=== PATIENT | female | born 1940 | race Caucasian/White ===

== ENCOUNTER → 2018-09-21 | Day surgery (SDC) | payer MEDICARE ==
[~2018-09-21] MED LIST: Lactated Ringers 1,000 ML IV SCH; Propofol 200 MG/20 ML SDV IV ONE
[2018-09-21 09:13] VITALS: BP 111/60; PULSE 59
--- NOTE | 2018-09-21 10:16 | OR ---
DATE OF OPERATION: 09/21/2018 PREOPERATIVE DIAGNOSIS: HISTORY OF POLYPS. POSTOPERATIVE DIAGNOSIS: HISTORY OF POLYPS. SURGEON: Ray Mirza MD PROCEDURE: FULL-LENGTH COLONOSCOPY WITH SNARE POLYPECTOMY X1. ANESTHESIA: MAC via GLUELINE WORKER. COMPLICATIONS: None. SPECIMEN: Tubular adenoma, splenic flexure. FINDINGS: 1. Full-length colonoscopy. 2. Plricsau-[id number] garcia diverticulosis. 3. Tubular adenoma, slightly larger than 0.5 cm, splenic flexure. RECOMMENDATIONS: Followup colonoscopy in 5 years. INDICATIONS: The patient has a prior history of polyp removal. She is in for a routine followup scope. DESCRIPTION OF PROCEDURE: The patient was prepped and draped, placed in the left lateral decubitus position. A lubricated Olympus colonoscope was inserted and easily advanced to the cecum. Direct visualization of the ileocecal valve and appendiceal orifice was accomplished. The bowel prep was adequate. She did have a lot of liquid stool in the left colon, but most of this was suctionable. Upon withdrawal, the cecum, ascending and transverse colon were benign other than the fact that the patient does have garcia diverticular disease, most severe in the sigmoid, but moderate throughout most of the colon. Just past the splenic flexure and the descending colon side, the patient had a stalk tubular adenoma just maybe over 0.5 cm in size, easily removed with a snare and suctioned into polyp trap #1 without complication. The rest of the descending and sigmoid colon showed no further polyps, mass, ulceration, or bleeding sites. No vascular abnormalities or signs of colitis. Severe diverticular disease is seen in the sigmoid. Rectal vault was benign. Retroflexion of the scope showed no perianal lesions. Air was suctioned, scope removed without complication. BARBER/JOHANNA /[id number]
== END ==
LOC: CC.SDS 07:05
PROVIDERS: ATTEND Family Medicine
DX: Z12.11 Encounter for screening for malignant neoplasm of colon (principal); D12.3 Benign neoplasm of transverse colon; K57.30 Diverticulosis of large intestine without perforation or abscess without bleeding; I10 Essential (primary) hypertension; E11.9 Type 2 diabetes mellitus without complications; F32.9 Major depressive disorder, single episode, unspecified; M17.10 Unilateral primary osteoarthritis, unspecified knee; M10.9 Gout, unspecified; Z88.8 Allergy status to other drugs, medicaments and biological substances; Z91.048 Other nonmedicinal substance allergy status; Z86.010 Personal history of colon polyps; Z85.038 Personal history of other malignant neoplasm of large intestine; Z79.82 Long term (current) use of aspirin; Z79.899 Other long term (current) drug therapy
CPT/HCPCS: 45385; J2704; J7120; 00811; 88305

== ENCOUNTER 2019-02-15 17:38 | Observation (INO) | payer MEDICARE ==
[2019-02-15] MEDS ORDERED: Acetaminophen 500 MG Tab PO ONE (18:11)
--- NOTE | 2019-02-15 18:43 | EDM.PDOC ---
ED HPI GENERAL MEDICAL PROBLEM - General Chief Complaint: Abdominal Pain Stated Complaint: abdominal pain, shaking, cold, N/V Time Seen by Provider: 02/15/19 18:05 Source of Information: Reports: Patient History Limitations: Reports: No Limitations - History of Present Illness INITIAL COMMENTS - FREE TEXT/NARRATIVE: This patient is a 78 year old female that reports that about 3pm today she generally was not feeling well. She reports having abdominal pain and and having the chills. She reports that for the past 2 weeks she has also had runny nose, congestion, drainage, and productive cough, She reports her drainage and cough are getting better. She reports though today that her abdominal pain to the RLQ. Onset: Today Onset Date: 02/15/19 Onset Time: 15:00 Location: Reports: Abdomen Quality: Reports: Ache Severity: Moderate Improves with: Reports: None Worsens with: Reports: None Associated Symptoms: Reports: Cough, cough w sputum, Fever/Chills, Headaches, Malaise, Nausea/Vomiting. Denies: Confusion, Chest Pain, Diaphoresis, Shortness of Breath, Syncope, Weakness Lower Abdominal Pain Score (Numeric/FACES): 8 - Related Data Allergies Allergy/AdvReac Type Severity Reaction Status Date / Time benazepril HCl Allergy Redness Verified 02/15/19 17:47 [From Lotensin] hydroxyamphetamine Allergy Cannot Verified 02/15/19 17:47 [From Paremyd] Remember tropicamide [From Paremyd] Allergy Cannot Verified 02/15/19 17:47 Remember dilating eye drops Allergy Redness Uncoded 02/15/19 17:47 tape Allergy Rash Uncoded 02/15/19 17:47 Home Meds: Home Meds Ascorbic Acid [Vitamin C] 500 mg PO DAILY 06/17/13 [History] Aspirin [Adult Low Dose Aspirin EC] 81 mg PO DAILY 06/17/13 [History] Atenolol/Chlorthalidone [Atenolol-Chlorthal 50-25 Tb] 0.5 tab PO DAILY 06/17/13 [History] Cholecalciferol (Vitamin D3) [Vitamin D3] 1,000 units PO DAILY 06/17/13 [History ] Cyanocobalamin (Vitamin B12) [Vitamin B12] 250 mcg PO DAILY 06/17/13 [History] Multivitamin [Daily Multiple Vitamin] 1 tab PO DAILY 06/17/13 [History] Biotin 10 mg PO DAILY 09/20/18 [History] Calcium Carbonate [Calcium] 600 mg PO DAILY 09/20/18 [History] Glucosamine [Glucosamine Sulfate] 500 mg PO BID 09/20/18 [History] allopurinoL [Zyloprim] 300 mg PO DAILY 09/20/18 [History] lisinopriL [Lisinopril] 2.5 mg PO DAILY 09/20/18 [History] Past Medical History HEENT History: Reports: Cataract Genitourinary History: Reports: Renal Calculus 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 Dermatologic History: Reports: Melanoma, Other (See Below) Other Dermatologic History: mole removal - Past Surgical History HEENT Surgical History: Reports: Cataract Surgery Female Surgical History: Reports: Other (See Below) Other Female Surgeries/Procedures: R) kidney removed Oncologic Surgical History: Reports: Other (See Below) Other Oncologic Surgeries/Procedures: "radical surgery" per pt states. Dermatological Surgical History: Reports: Skin Biopsy, Other (See Below) Social & Family History - Family History Family Medical History: Noncontributory - Tobacco Use Smoking Status *Q: Never Smoker Second Hand Smoke Exposure: No - Caffeine Use Caffeine Use: Reports: None - Recreational Drug Use Recreational Drug Use: No ED ROS GENERAL - Review of Systems Review Of Systems: See Below Constitutional: Reports: Fever, Chills, Malaise, Fatigue HEENT: Reports: Rhinitis, Sinus Problem Respiratory: Reports: Cough, Sputum. Denies: Shortness of Breath, Wheezing, Pleuritic Chest Pain Cardiovascular: Reports: No Symptoms Endocrine: Reports: No Symptoms GI/Abdominal: Reports: Abdominal Pain, Nausea. Denies: Diarrhea, Vomiting : Reports: No Symptoms Musculoskeletal: Reports: No Symptoms Skin: Reports: No Symptoms Neurological: Reports: No Symptoms Psychiatric: Reports: No Symptoms Hematologic/Lymphatic: Reports: No Symptoms Immunologic: Reports: No Symptoms ED EXAM, GI/ABD - Physical Exam Exam: See Below Exam Limited By: No Limitations General Appearance: Alert, WD/WN, No Apparent Distress, Anxious, Obese Eyes: Bilateral: Normal Appearance Ears: Normal External Exam, Normal Canal, Hearing Grossly Normal, Normal TMs Nose: Normal Inspection, Normal Mucosa, No Blood Throat/Mouth: Normal Inspection, Normal Lips, Normal Teeth, Normal Gums, Normal Oropharynx, Normal Voice, No Airway Compromise Head: Atraumatic, Normocephalic Neck: Normal Inspection, Supple, Non-Tender, Full Range of Motion Respiratory/Chest: No Respiratory Distress, Lungs Clear, Normal Breath Sounds, No Accessory Muscle Use Cardiovascular: Normal Peripheral Pulses, Regular Rate, Rhythm, No Edema, No Gallop, No JVD, No Murmur, No Rub GI/Abdominal Exam: Normal Bowel Sounds, Soft, Tender (RLQ), Other (obese). No: Guarding (Female) Exam: Deferred Rectal (Female) Exam: Deferred Back Exam: Normal Inspection, Full Range of Motion, CVA Tenderness (L), CVA Tenderness (R) Extremities: Normal Inspection, Normal Range of Motion, Non-Tender, No Pedal Edema, Normal Capillary Refill Neurological: Alert, Oriented, Normal Cognition, No Motor/Sensory Deficits Psychiatric: Anxious Skin Exam: Warm, Dry, Intact, Normal Color, No Rash Lymphatic: No Adenopathy Course - Vital Signs Last Recorded V/S: Last Vital Signs Temp 98.9 F 02/15/19 18:49 Pulse 90 02/15/19 17:39 Resp 20 02/15/19 17:39 BP 147/84 H 02/15/19 17:39 Pulse Ox 98 02/15/19 17:39 - Orders/Labs/Meds Orders: Active Orders 24 hr Category Date Time Status Abdomen Pelvis w Cont [CT] Stat Exams 02/15/19 19:11 Taken Chest 1V Frontal [CR] Stat Exams 02/15/19 18:18 Taken CULTURE BLOOD [BC] Stat Lab 02/15/19 18:35 Received CULTURE BLOOD [BC] Stat Lab 02/15/19 18:45 Received Blood Culture x2 Reflex Set [OM.PC] Stat Oth 02/15/19 18:17 Ordered Labs: Laboratory Tests 02/15/19 02/15/19 02/15/19 Range/Units 18:35 18:35 18:35 WBC 9.0 (5.0-10.0) 10^3/uL RBC 3.74 L (4.00-5.50) 10^6/uL Hgb 12.0 (12.0-16.0) g/dL Hct 35.0 L (37.0-47.0) % MCV 93.6 (82.0-94.0) fL MCH 32.1 H (27.0-32.0) pg MCHC 34.3 (33.0-38.0) g/dL RDW Coeff of Davy 15.1 H (11.0-15.0) % Plt Count 99 L (150-400) 10^3/uL Neut % (Auto) 86.1 H (35-85) % Lymph % (Auto) 5.5 L (10-55) % [place] % (Auto) 8.2 (0-16) % Eos % (Auto) 0.2 (0-5) % Baso % (Auto) 0 (0-3) % Neut # (Auto) 7.73 H (1.80-7.00) 10^3/uL Lymph # (Auto) 0.49 L (1.00-4.80) 10^3/uL [place] # (Auto) 0.74 (0.00-0.80) 10^3/uL Eos # (Auto) 0.02 (0.00-0.45) 10^3/uL Baso # (Auto) 0.00 10^3/uL Sodium 139 (136-145) mEq/L Potassium 3.8 (3.5-5.0) mEq/L Chloride 102 (98-106) mEq/L Carbon Dioxide 28 (21-32) mmol/L BUN 16 (7-18) mg/dL Creatinine 1.0 (0.6-1.0) mg/dL Est Cr Clr Drug Dosing 38.97 mL/min Estimated GFR (MDRD) 54 L (>=60) mL/min Glucose 219 H D (75-99) mg/dL Lactic Acid 1.5 (0.4-2.0) mmol/L Calcium 9.3 (8.4-10.1) mg/dL Total Bilirubin 1.3 H (0.0-1.0) mg/dL AST 41 H (15-37) U/L ALT 18 (12-78) U/L Alkaline Phosphatase 151 H (46-116) U/L C-Reactive Protein 1.6 H (0.2-0.8) mg/dL Total Protein 7.6 (6.4-8.2) g/dL Albumin 2.7 L (3.4-5.0) g/dL Amylase 43 (25-115) U/L Lipase 143 (73-393) U/L Urine Color (YELLOW) Urine Appearance (CLEAR) Urine pH (4.5-8.0) Ur Specific [place] (1.003-1.020) Urine Protein (NEGATIVE) mg/dL Urine Glucose (UA) (NEGATIVE) mg/dL Urine Ketones (NEGATIVE) mg/dL Urine Occult Blood (NEGATIVE) Urine Nitrite (NEGATIVE) Urine Bilirubin (NEGATIVE) Urine Urobilinogen (0.2-1.0) EU/dL Ur Leukocyte Esterase (NEGATIVE) Urine RBC (0-5) /HPF Urine WBC (0-5) /HPF Ur Squamous Epith Cells (NOT SEEN) /HPF Urine Bacteria (NOT SEEN) /HPF Hyaline Casts (NOT SEEN) /LPF Urine Mucus (NOT SEEN) /HPF 02/15/19 Range/Units 18:36 WBC (5.0-10.0) 10^3/uL RBC (4.00-5.50) 10^6/uL Hgb (12.0-16.0) g/dL Hct (37.0-47.0) % MCV (82.0-94.0) fL MCH (27.0-32.0) pg MCHC (33.0-38.0) g/dL RDW Coeff of Davy (11.0-15.0) % Plt Count (150-400) 10^3/uL Neut % (Auto) (35-85) % Lymph % (Auto) (10-55) % [place] % (Auto) (0-16) % Eos % (Auto) (0-5) % Baso % (Auto) (0-3) % Neut # (Auto) (1.80-7.00) 10^3/uL Lymph # (Auto) (1.00-4.80) 10^3/uL [place] # (Auto) (0.00-0.80) 10^3/uL Eos # (Auto) (0.00-0.45) 10^3/uL Baso # (Auto) 10^3/uL Sodium (136-145) mEq/L Potassium (3.5-5.0) mEq/L Chloride (98-106) mEq/L Carbon Dioxide (21-32) mmol/L BUN (7-18) mg/dL Creatinine (0.6-1.0) mg/dL Est Cr Clr Drug Dosing mL/min Estimated GFR (MDRD) (>=60) mL/min Glucose (75-99) mg/dL Lactic Acid (0.4-2.0) mmol/L Calcium (8.4-10.1) mg/dL Total Bilirubin (0.0-1.0) mg/dL AST (15-37) U/L ALT (12-78) U/L Alkaline Phosphatase (46-116) U/L C-Reactive Protein (0.2-0.8) mg/dL Total Protein (6.4-8.2) g/dL Albumin (3.4-5.0) g/dL Amylase (25-115) U/L Lipase (73-393) U/L Urine Color Yellow (YELLOW) Urine Appearance Slightly cloudy (CLEAR) Urine pH 7.0 (4.5-8.0) Ur Specific [place] 1.020 (1.003-1.020) Urine Protein Negative (NEGATIVE) mg/dL Urine Glucose (UA) Negative (NEGATIVE) mg/dL Urine Ketones Negative (NEGATIVE) mg/dL Urine Occult Blood Trace-lysed H (NEGATIVE) Urine Nitrite Negative (NEGATIVE) Urine Bilirubin Negative (NEGATIVE) Urine Urobilinogen 1.0 (0.2-1.0) EU/dL Ur Leukocyte Esterase Negative (NEGATIVE) Urine RBC 0-5 (0-5) /HPF Urine WBC 0-5 (0-5) /HPF Ur Squamous Epith Cells Many H (NOT SEEN) /HPF Urine Bacteria Not seen (NOT SEEN) /HPF Hyaline Casts Few H (NOT SEEN) /LPF Urine Mucus Not seen (NOT SEEN) /HPF Meds: Medications Discontinued Medications Generic Name Dose Route Start Last Admin Trade Name Freq PRN Reason Stop Dose Admin Acetaminophen 1,000 mg 02/15/19 18:11 02/15/19 18:19 Tylenol Extra Strength PO 02/15/19 18:12 1,000 mg ONETIME ONE Administration Sodium Chloride 1,000 mls @ 1,000 mls/hr 02/15/19 20:30 02/15/19 20:37 Normal Saline IV 02/15/19 21:29 1,000 mls/hr .BOLUS ONE Administration Iopamidol 200 ml 02/15/19 19:17 02/15/19 19:42 Isovue-370 (76%) IV 02/15/19 19:18 160 ml ONETIME ONE Administration - Radiology Interpretation Free Text/Narrative:: CXR: No acute process CT abd pelvis with contrast: Discussed with radiologist and compared previous. No changes. Moderate ascites unchanged, diverticula without diverticulitis, liver cirrhosis, aortic dilation stable since last exam. Normal appendix. normal gallbladder and pancreas. CT Results Date: 02/15/19 CT Results Time: 08:35 - Re-Assessments/Exams Free Text/Narrative Re-Assessment/Exam: 02/15/19 20:58 Discussed with patient being discharged home. Patient feels more comfortable staying over night in hospital. I will admit patient for abd pain, fever. Discussed patient case with Julia, recommend dx viral gastroenteritis and discharge. 02/15/19 21:00 Patient refuses any other medication other than the fluids and tylenol. Departure - Departure Time of Disposition: 21:00 Disposition: Refer to Observation Condition: Fair Clinical Impression: Gastroenteritis Abdominal pain Qualifiers: Abdominal location: right lower quadrant Qualified Code(s): R10.31 - Right lower quadrant pain Fever Qualifiers: Fever type: unspecified Qualified Code(s): R50.9 - Fever, unspecified Ascites Qualifiers: Ascites type: other type Qualified Code(s): R18.8 - Other ascites - Discharge Information *PRESCRIPTION DRUG MONITORING PROGRAM REVIEWED*: Not Applicable *COPY OF PRESCRIPTION DRUG MONITORING REPORT IN PATIENT JAROD: Not Applicable Sepsis Event Note - Evaluation Sepsis Screening Result: No Definite Risk - Focused Exam Vital Signs: Vital Signs Temp Temp Pulse Resp BP Pulse Ox 02/15/19 18:49 98.9 F 02/15/19 18:19 100.9 F H 02/15/19 17:39 100.9 F H 90 20 147/84 H 98 Date Exam was Performed: 02/15/19 Time Exam was Performed: 21:49 - My Orders Last 24 Hours: My Active Orders 02/15/19 18:17 Blood Culture x2 Reflex Set [OM.PC] Stat 02/15/19 18:18 Chest 1V Frontal [CR] Stat 02/15/19 18:35 CULTURE BLOOD [BC] Stat 02/15/19 18:45 CULTURE BLOOD [BC] Stat 02/15/19 19:11 Abdomen Pelvis w Cont [CT] Stat - Assessment/Plan Last 24 Hours: My Active Orders 02/15/19 18:17 Blood Culture x2 Reflex Set [OM.PC] Stat 02/15/19 18:18 Chest 1V Frontal [CR] Stat 02/15/19 18:35 CULTURE BLOOD [BC] Stat 02/15/19 18:45 CULTURE BLOOD [BC] Stat 02/15/19 19:11 Abdomen Pelvis w Cont [CT] Stat Plan: PLEASE SEE RN NOTE FOR PFSH. PLEASE USE ER H&P ADMIT H&P.
[2019-02-15] MEDS ORDERED: Iopamidol 755 Mg/ML 200 ML Bottle IV ONE (19:17)
[2019-02-15] MEDS ORDERED: Sodium Chloride 0.9% 1,000 ML IV ONE (20:30)
[2019-02-15] MEDS ORDERED: Enoxaparin 40 MG/0.4 ML Syringe SUBCUT SCH ×2 (22:00)
[2019-02-15] MEDS ORDERED: Ondansetron 4 MG/2 ML SDV IV PRN (22:09)
[2019-02-15] MEDS ORDERED: Ibuprofen 200 MG Tab PO PRN (22:09)
[2019-02-16 07:50] VITALS: PULSE 62
[2019-02-16] MEDS ORDERED: ATENOLOL PO SCH (08:00)
[2019-02-16] MEDS ORDERED: CHLORTHALIDONE PO SCH (08:00)
[2019-02-16] MEDS ORDERED: Non-Formulary Medication 1 Each (Biotin [Biotin] 10 MG) PO SCH (08:00)
[2019-02-16] MEDS ORDERED: Non-Formulary Medication 1 Each (Ascorbic Acid [Vitamin C] 500 MG) PO SCH (08:00)
[2019-02-16] MEDS ORDERED: Non-Formulary Medication 1 Each (Allopurinol [Zyloprim] 300 MG) PO SCH (08:00)
[2019-02-16] MEDS ORDERED: [UNRECOGNIZED DRUG - OTHER] PO SCH (08:00)
[2019-02-16] MEDS ORDERED: Non-Formulary Medication 1 Each (Glucosamine [Glucosamine Sulfate] 500 MG) PO SCH (08:00)
[2019-02-16] MEDS ORDERED: MULTIVITAMIN PO SCH (08:00)
[2019-02-16] MEDS ORDERED: CYANOCOBALAMIN 250 MCG PO SCH (08:00)
[2019-02-16] MEDS ORDERED: Non-Formulary Medication 1 Each (Calcium Carbonate 600 MG) PO SCH (08:00)
[2019-02-16] MEDS ORDERED: Non-Formulary Medication 1 Each (Cholecalciferol (Vitamin D3) [Vitamin D3] 1,000 UNITS) PO SCH (08:00)
[2019-02-16] MEDS ORDERED: Non-Formulary Medication 1 Each (Lisinopril [Lisinopril] 2.5 MG) PO SCH (08:00)
[2019-02-16 13:06] VITALS: BP 109/49
--- NOTE | 2019-02-16 14:55 | PCM.DCSUM1 ---
Discharge Summary - Hospital Course HPI Initial Comments: This patient was admitted for abdominal pain yesterday. Patient reports today her abdominal pain is much better. She reports she is ready to go home. I spoke to daughter on the phone with the permission of the patient. Daughter is oldest daughter and a nurse. We discussed all lab results and ct results and patient need to see her PCP and liver specialist. I will discharge the patient home. - Discharge Data Discharge Date: 02/16/19 Discharge Disposition: Home, Self-Care 01 Condition: Stable - Referral to Home Health Primary Care Physician: Zulema Garcia PA-C - Patient Instructions Diet: Usual Diet as Tolerated Activity: As Tolerated, Rest and Relax Today Driving: May Drive Today Showering/Bathing: May Shower Notify Provider of: Fever, Increased Pain, Swelling and Redness, Nausea and/or Vomiting Other/Special Instructions: Followup with your primcary care provider this week. Followup with a liver specialist, your primary care provider to arrange. Return for increase in pain, fever, vomiting, swelling abdomen, shortness of breath, or any other concerns. Discuss your ct results with your primary care provider: Possible US or MRI further testing. - Discharge Plan *PRESCRIPTION DRUG MONITORING PROGRAM REVIEWED*: Not Applicable *COPY OF PRESCRIPTION DRUG MONITORING REPORT IN PATIENT JAROD: Not Applicable Home Medications: Home Meds Ascorbic Acid [Vitamin C] 500 mg PO DAILY 06/17/13 [History] Aspirin [Adult Low Dose Aspirin EC] 81 mg PO DAILY 06/17/13 [History] Atenolol/Chlorthalidone [Atenolol-Chlorthalidone 50-25] 0.5 tab PO DAILY [History] Cholecalciferol (Vitamin D3) [Vitamin D3] 1,000 units PO DAILY 06/17/13 [History ] Cyanocobalamin (Vitamin B12) [Vitamin B12] 250 mcg PO DAILY 06/17/13 [History] Multivitamin [Daily Multiple Vitamin] 1 tab PO DAILY 06/17/13 [History] Biotin 10 mg PO DAILY 09/20/18 [History] Calcium Carbonate [Calcium] 600 mg PO DAILY 09/20/18 [History] Glucosamine [Glucosamine Sulfate] 500 mg PO BID 09/20/18 [History] allopurinoL [Zyloprim] 300 mg PO DAILY 09/20/18 [History] lisinopriL [Lisinopril] 2.5 mg PO DAILY 09/20/18 [History] Oxygen Therapy Mode: Room Air Patient Handouts: Viral Gastroenteritis, Child, Cirrhosis, Abdominal Pain, Adult, [id number], Ascites Forms: ED Department Discharge Referrals: Zulema Garcia PA-C [Primary Care Provider] - - Discharge Summary/Plan Comment DC Time >30 min.: No - General Info Functional Status: Reports: Pain Controlled (garcia much improved) - Review of Systems General: Reports: No Symptoms. Denies: Fever HEENT: Reports: No Symptoms Pulmonary: Reports: No Symptoms Cardiovascular: Reports: No Symptoms Gastrointestinal: Reports: Abdominal Pain (but much improved from last night). Denies: Nausea, Vomiting Genitourinary: Reports: No Symptoms Musculoskeletal: Reports: No Symptoms Skin: Reports: No Symptoms Neurological: Reports: No Symptoms Psychiatric: Reports: No Symptoms - Patient Data Vitals - Most Recent: Last Vital Signs Temp 98.2 F 02/16/19 12:00 Pulse 62 02/16/19 12:00 Resp 18 02/16/19 12:00 BP 109/49 L 02/16/19 12:00 Pulse Ox 98 02/16/19 12:00 Weight - Most Recent: 269 lb Lab Results - Last 24 hrs: Laboratory Results - last 24 hr 02/15/19 02/15/19 02/15/19 Range/Units 18:35 18:35 18:35 WBC 9.0 (5.0-10.0) 10^3/uL RBC 3.74 L (4.00-5.50) 10^6/uL Hgb 12.0 (12.0-16.0) g/dL Hct 35.0 L (37.0-47.0) % MCV 93.6 (82.0-94.0) fL MCH 32.1 H (27.0-32.0) pg MCHC 34.3 (33.0-38.0) g/dL RDW Coeff of Davy 15.1 H (11.0-15.0) % Plt Count 99 L (150-400) 10^3/uL Neut % (Auto) 86.1 H (35-85) % Lymph % (Auto) 5.5 L (10-55) % [place] % (Auto) 8.2 (0-16) % Eos % (Auto) 0.2 (0-5) % Baso % (Auto) 0 (0-3) % Neut # (Auto) 7.73 H (1.80-7.00) 10^3/uL Lymph # (Auto) 0.49 L (1.00-4.80) 10^3/uL [place] # (Auto) 0.74 (0.00-0.80) 10^3/uL Eos # (Auto) 0.02 (0.00-0.45) 10^3/uL Baso # (Auto) 0.00 10^3/uL Sodium 139 (136-145) mEq/L Potassium 3.8 (3.5-5.0) mEq/L Chloride 102 (98-106) mEq/L Carbon Dioxide 28 (21-32) mmol/L BUN 16 (7-18) mg/dL Creatinine 1.0 (0.6-1.0) mg/dL Est Cr Clr Drug Dosing 38.97 mL/min Estimated GFR (MDRD) 54 L (>=60) mL/min Glucose 219 H D (75-99) mg/dL Lactic Acid 1.5 (0.4-2.0) mmol/L Calcium 9.3 (8.4-10.1) mg/dL Total Bilirubin 1.3 H (0.0-1.0) mg/dL AST 41 H (15-37) U/L ALT 18 (12-78) U/L Alkaline Phosphatase 151 H (46-116) U/L C-Reactive Protein 1.6 H (0.2-0.8) mg/dL Total Protein 7.6 (6.4-8.2) g/dL Albumin 2.7 L (3.4-5.0) g/dL Amylase 43 (25-115) U/L Lipase 143 (73-393) U/L Urine Color (YELLOW) Urine Appearance (CLEAR) Urine pH (4.5-8.0) Ur Specific [facility] (1.003-1.020) Urine Protein (NEGATIVE) mg/dL Urine Glucose (UA) (NEGATIVE) mg/dL Urine Ketones (NEGATIVE) mg/dL Urine Occult Blood (NEGATIVE) Urine Nitrite (NEGATIVE) Urine Bilirubin (NEGATIVE) Urine Urobilinogen (0.2-1.0) EU/dL Ur Leukocyte Esterase (NEGATIVE) Urine RBC (0-5) /HPF Urine WBC (0-5) /HPF Ur Squamous Epith Cells (NOT SEEN) /HPF Urine Bacteria (NOT SEEN) /HPF Hyaline Casts (NOT SEEN) /LPF Urine Mucus (NOT SEEN) /HPF 02/15/19 Range/Units 18:36 WBC (5.0-10.0) 10^3/uL RBC (4.00-5.50) 10^6/uL Hgb (12.0-16.0) g/dL Hct (37.0-47.0) % MCV (82.0-94.0) fL MCH (27.0-32.0) pg MCHC (33.0-38.0) g/dL RDW Coeff of Davy (11.0-15.0) % Plt Count (150-400) 10^3/uL Neut % (Auto) (35-85) % Lymph % (Auto) (10-55) % [place] % (Auto) (0-16) % Eos % (Auto) (0-5) % Baso % (Auto) (0-3) % Neut # (Auto) (1.80-7.00) 10^3/uL Lymph # (Auto) (1.00-4.80) 10^3/uL [place] # (Auto) (0.00-0.80) 10^3/uL Eos # (Auto) (0.00-0.45) 10^3/uL Baso # (Auto) 10^3/uL Sodium (136-145) mEq/L Potassium (3.5-5.0) mEq/L Chloride (98-106) mEq/L Carbon Dioxide (21-32) mmol/L BUN (7-18) mg/dL Creatinine (0.6-1.0) mg/dL Est Cr Clr Drug Dosing mL/min Estimated GFR (MDRD) (>=60) mL/min Glucose (75-99) mg/dL Lactic Acid (0.4-2.0) mmol/L Calcium (8.4-10.1) mg/dL Total Bilirubin (0.0-1.0) mg/dL AST (15-37) U/L ALT (12-78) U/L Alkaline Phosphatase (46-116) U/L C-Reactive Protein (0.2-0.8) mg/dL Total Protein (6.4-8.2) g/dL Albumin (3.4-5.0) g/dL Amylase (25-115) U/L Lipase (73-393) U/L Urine Color Yellow (YELLOW) Urine Appearance Slightly cloudy (CLEAR) Urine pH 7.0 (4.5-8.0) Ur Specific [facility] 1.020 (1.003-1.020) Urine Protein Negative (NEGATIVE) mg/dL Urine Glucose (UA) Negative (NEGATIVE) mg/dL Urine Ketones Negative (NEGATIVE) mg/dL Urine Occult Blood Trace-lysed H (NEGATIVE) Urine Nitrite Negative (NEGATIVE) Urine Bilirubin Negative (NEGATIVE) Urine Urobilinogen 1.0 (0.2-1.0) EU/dL Ur Leukocyte Esterase Negative (NEGATIVE) Urine RBC 0-5 (0-5) /HPF Urine WBC 0-5 (0-5) /HPF Ur Squamous Epith Cells Many H (NOT SEEN) /HPF Urine Bacteria Not seen (NOT SEEN) /HPF Hyaline Casts Few H (NOT SEEN) /LPF Urine Mucus Not seen (NOT SEEN) /HPF RUBEN Results - Last 24 hrs: Microbiology 02/15/19 18:30 Influenza Type A Antigen Screen - Final Nasal, Unspecified NEGATIVE INFLUENZA A VIRUS AG REFERENCE RANGE: NEGATIVE Influenza Type B Antigen Screen - Final NEGATIVE INFLUENZA B VIRUS AG REFERENCE RANGE: NEGATIVE Med Orders - Current: Current Medications Enoxaparin Sodium (Lovenox) 40 mg SUBCUT Q24H [facility] Last Admin: 02/15/19 23:47 Dose: Not Given Ibuprofen (Motrin) 600 mg PO Q6H PRN PRN Reason: Pain (mild 1-3) Last Admin: 02/15/19 23:04 Dose: 600 mg Non-Formulary Medication (Allopurinol [Zyloprim]) 300 mg PO DAILY [facility] Non-Formulary Medication (Ascorbic Acid [Vitamin C]) 500 mg PO DAILY [facility] Non-Formulary Medication (Aspirin [Adult Low Dose Aspirin Ec]) 81 mg PO DAILY [facility] Non-Formulary Medication (Atenolol/Chlorthalidone [Atenolol-Chlorthalidone 50-25 ]) 0.5 tab PO DAILY [facility] Non-Formulary Medication (Biotin [Biotin]) 10 mg PO DAILY [facility] Non-Formulary Medication (Calcium Carbonate) 600 mg PO DAILY [facility] Non-Formulary Medication (Cholecalciferol (Vitamin D3) [Vitamin D3]) 1,000 units PO DAILY [facility] Non-Formulary Medication (Cyanocobalamin (Vitamin B12) [Vitamin B12]) 250 mcg PO DAILY [facility] Non-Formulary Medication (Glucosamine [Glucosamine Sulfate]) 500 mg PO BID [facility] Non-Formulary Medication (Lisinopril [Lisinopril]) 2.5 mg PO DAILY [facility] Non-Formulary Medication (Multivitamin [Daily Multiple Vitamin]) 1 tab PO DAILY [facility] Ondansetron HCl (Zofran) 4 mg IV Q6H PRN PRN Reason: Nausea/Vomiting Discontinued Medications Acetaminophen (Tylenol Extra Strength) 1,000 mg PO ONETIME ONE Stop: 02/15/19 18:12 Last Admin: 02/15/19 18:19 Dose: 1,000 mg Enoxaparin Sodium (Lovenox) 40 mg SUBCUT Q24H PHILPI Last Admin: 02/15/19 23:05 Dose: 40 mg Sodium Chloride (Normal Saline) 1,000 mls @ 1,000 mls/hr IV .BOLUS ONE Stop: 02/15/19 21:29 Last Admin: 02/15/19 20:37 Dose: 1,000 mls/hr Iopamidol (Isovue-370 (76%)) 200 ml IV ONETIME ONE Stop: 02/15/19 19:18 Last Admin: 02/15/19 19:42 Dose: 160 ml - Exam General: Reports: Alert, Oriented, Cooperative, No Acute Distress HEENT: Reports: Pupils Equal, Pupils Reactive, Mucous Membr. Moist/[place] Neck: Reports: Supple Lungs: Reports: Clear to Auscultation, Normal Respiratory Effort Cardiovascular: Reports: Regular Rate, Regular Rhythm GI/Abdominal Exam: Normal Bowel Sounds, Soft, Tender (mild RLQ. LLQ.), Other ( mild ascites, not significant. ). No: Guarding, Rigid, Rebound Back Exam: Reports: Normal Inspection, Full Range of Motion Extremities: Normal Inspection, Normal Range of Motion, Non-Tender, No Pedal Edema, Normal Capillary Refill Skin: Reports: Warm, Dry, Intact Neurological: Reports: No New Focal Deficit Psy/Mental Status: Reports: Alert, Normal Affect, Normal Mood
== END 2019-02-16 14:56 | disposition home or self-care (01) ==
LOC: CC.ED 17:38 → UNDOADMOB 21:00 → CC.MS 21:00 → UNDODISOB 02-16 14:56
PROVIDERS: ADMIT Nurse Practitioner; ATTEND Nurse Practitioner
DX: R10.31 Right lower quadrant pain (principal); R50.9 Fever, unspecified; R18.8 Other ascites; E11.9 Type 2 diabetes mellitus without complications; F32.9 Major depressive disorder, single episode, unspecified; M19.90 Unspecified osteoarthritis, unspecified site; Z79.82 Long term (current) use of aspirin; Z79.899 Other long term (current) drug therapy; Z91.048 Other nonmedicinal substance allergy status; Z88.8 Allergy status to other drugs, medicaments and biological substances
CPT/HCPCS: 36415; 71045; 74177; 80053; 81001; 82150; 83605; 83690; 85025; 86140; 87040; 87804; 96360; 96372; 99217; 99220; 99285-25; A9270-GY; G0378; J1650; J7030; Q9967